=== PATIENT | male | born 1960 | race Caucasian/White ===

== ENCOUNTER 2020-11-12 01:22 | Emergency (ER) | payer SELFPAY ==
[~2020-11-12] VITALS: Ht 188 cm; Wt 100.0 kg
[~2020-11-12 01:22] MED LIST: ASPI325T17 PO; FOLI1TAB32 PO; FURO20TA3 PO; METO25TA35 PO; OMEP20TA62 PO; POTA20TA6 PO; TIOT18CA INH
--- NOTE | 2020-11-12 02:00 | NUR ---
INITIAL PT CONTACT. PT PRESENTS TO ED VIA EMS WITH VAGUE COMPLAINTS OF CHEST PAIN AND "RECURRENT EPISODES OF NOT RESPONDING TO US AND HIS FULL BODY GOING LIMP" PER EMS. EMS STATES PT HAS ALSO BEEN SEEN TWICE AT [facility] EARLIER TODAY FOR THE SAME, PT REFUSED ALL OF WORK-UP AT [facility]. PT BECAME INCREASINGLY COMBATIVE AND AGGRESIVE TOWARDS STAFF THERE AND WAS THEN ESCORTED OFF PROPERTY. DUE TO INCREASED HOSTILE AND AGGRESIVE BEHAVIOR [employer] WAS CALLED. PT WAS THEN PLACED ON A LEGAL HOLD BY JOVANNA GRIJALVA FOR BEHAVIOR AND POTENTIAL TO HARM HIMSELF AND OTHERS. UPON ARRIVAL TO ED, PT EXTREMELY UNCOOPERATIVE WITH STAFF, REFUSING TO OPEN EYES TO VERBAL COMMAND, PT REPONDS TO PAINFUL STIMULI BUT CONTINUES TO REFUSE TO ANSWER ANY EXAM/ASSESSMENT QUESTIONS AT THIS TIME. WHEN PT INSTRUCTED TO MOVE FROM EMS GURNEY TO ED GURNEY, PT ROLLED OFF GURNEY AND WENT LIMP ON ED GURNEY. PT UNCOOPERATIVE AND NOT FOLLOWING COMMANDS AT THIS TIME. PT PLACED ON CONTINUOS PULSE OX AND CARDIAC MONITORING. AWAITING ERP AT THIS TIME.
--- NOTE | 2020-11-12 03:50 | NUR ---
legal hold decertified by ERP Dr. Mayfield. Safe to d/c pt home.
--- NOTE | 2020-11-12 03:56 | NUR ---
PT PROVIDED D/C INSTRUCTIONS AND REFUSING TO LEAVE ED. PT REFUSING TO OPEN EYES OR CONVERSE WITH STAFF UPON D/C. SECURITY CALLED AND AT BEDSIDE TO ASSIST IN D/C OF PT AND ESCORT PT OUT OF DEPARTMENT. PT CONTINUALLY SHOUTING "NO I AM NOT LEAVING, I DONT WANT MEDICAL CARE BUT I AM NOPT LEAVING." PT OUT OF DEPARTMENT VIA WHEELCHAIR.
[2020-11-12 03:58] VITALS: BP 110/70
--- NOTE | 2020-11-12 05:38 | NUR ---
PT CONTINUES TO WANDER ONTO HOSPITAL PROPERTY. CODE 250 CALLED FOR PT SITTING ON SIDEWALK SCOOTING ON THE GROUND AND PT REQUESTING "MEDICAL SERVICES FROM A MEDICAL PROFESSIONAL, I AM HAVING A HEART ATTACK". PT BROUGHT TO ED REGISTRATION TO CHECK IN AGAIN AND CONTINUALLY REFUSES TX WHEN PROVIDED THE OPTION. [employer] ON SCENE. PT CONTINUES TO BE UNCOOPERATIVE AND CONTRADICTING SELF "I WANT HELP, I WANT HELP RIGHT NOW. RIGHT THIS SECOND I AM NOT CHECKING IN. YOU CAN'T TAKE LABS OR ANYTHING ELSE." THIS RN PROVIDED PT WITH AMA PAPERWORK, PT SIGNED AND WITNESSNED BY THIS RN. AMA PAPERWORK PLACED WITH PAPER CHART. [employer] TO REMOVE PT FROM PROPERTY.
== END 2020-11-12 04:00 | disposition home or self-care (01) ==
LOC: ED 01:45
DX: R07.89 Other chest pain (principal); R94.31 Abnormal electrocardiogram [ECG] [EKG]; I10 Essential (primary) hypertension; J44.9 Chronic obstructive pulmonary disease, unspecified; I48.91 Unspecified atrial fibrillation
CPT/HCPCS: 93005; 99283; 99285

== ENCOUNTER 2020-11-15 15:35 | Emergency (ER) | payer SELFPAY ==
--- NOTE | 2020-11-15 15:40 | NUR ---
clerk to justice: attempted to call pt from [facility] for triage. no answer in lobby pt was found to have left the lobby via his motorized WC and wnt into the ER through the ambulance bay door. pt yelling at staff that he has been waiting too long to be seen. states that the amount of time that he has been waiting is unaceptable and that he need immediate assistance
--- NOTE | 2020-11-15 15:48 | NUR ---
CREAMERY WORKER: PT CAME THROUGH AMBULANCE DOORS, STATES, "I HAVE BEEN WAITING TOO LONG AND THIS IS NOT ACCEPTABLE", EXPLAINED TRIAGE HAS BEEN CALL PATIENT AND TO GO BACK TO THE ED. PT WENT BACK TO THE LOBBY
--- NOTE | 2020-11-15 15:54 | NUR ---
ultrasound tester: EKG done in triage
[2020-11-15 16:12] LABS: BASOPHILS % (AUTO) 1 % (0-1); EOSINOPHILS % (AUTO) 1 % (1-7); LYMPHOCYTES % (AUTO) 10 % (22-44); MEAN CORPUSCULAR HEMOGLOBIN 29.9 pg (27.5-34.5); MEAN CORPUSCULAR HGB CONC 34.2 g/dL (33.2-36.2); MEAN PLATELET VOLUME 8.1 fL (7.4-10.4); MONOCYTES % (AUTO) 7 % (2-9); NEUTROPHILS % (AUTO) 81 % (42-75); PLATELET COUNT 375 x10^3/uL (130-400); RED BLOOD COUNT 5.39 x10^6/uL (4.38-5.82); RED CELL DISTRIBUTION WIDTH 16.5 % (9.4-14.8)
[2020-11-15 16:23] LABS: CHLORIDE 88 mmol/L (98-107)
[2020-11-15 16:32] LABS: ALANINE AMINOTRANSFERASE 24 U/L (12-78); ALBUMIN 3.4 g/dL (3.4-5.0); ALKALINE PHOSPHATASE 106 U/L (45-117); ANION GAP 11 mmol/L (5-15); CALCIUM 8.7 mg/dL (8.5-10.1); CREATININE 1.72 mg/dL (0.7-1.3); TOTAL PROTEIN 7.8 g/dL (6.4-8.2); TROPONIN I < 0.015 ng/mL (0.000-0.045)
[2020-11-15 17:42] VITALS: BP 97/68
--- NOTE | 2020-11-15 20:10 | NUR ---
patient called 3 times in the lobby. no answer.
== END 2020-11-15 20:19 | disposition left against medical advice (07) ==
LOC: ED 16:00
DX: R07.89 Other chest pain (principal)
CPT/HCPCS: 36415; 71046; 71120; 80053; 84484; 85025; 93005; 99285